=== PATIENT | male | born 1995 | race Caucasian/White ===

== ENCOUNTER 2018-06-23 19:00 | Emergency (ER) | payer OTHER ==
[~2018-06-23] VITALS: Ht 175.3 cm; Wt 78.5 kg
[2018-06-23 19:23] VITALS: BP 155/95
--- NOTE | 2018-06-23 19:23 | NUR ---
PT AMULATED W/ STEADY GATE BACK TO LOBBY, VSS, PT ACTING APPROPRIATLY.
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
--- NOTE | 2018-06-23 19:52 | NUR ---
PT AMBULATED TO CHAIR E, PHYSICIAN AWARE OF PT STATUS.
[2018-06-23 20:25] VITALS: BP 131/92
--- NOTE | 2018-06-23 20:25 | NUR ---
Patient discharged with v/s stable. Written and verbal after care instructions given and explained. Patient alert, oriented and verbalized understanding of instructions. Ambulatory with steady gait. All questions addressed prior to discharge. ID band removed. Patient advised to follow up with PMD. Rx of TYLENOL ES, BACITRACIN given. Patient educated on indication of medication including possible reaction and side effects. Opportunity to ask questions provided and answered.
== END 2018-06-23 20:25 | disposition home or self-care (01) ==
LOC: MED 19:00
DX: S50.852A Superficial foreign body of left forearm, initial encounter (principal); S50.12XA Contusion of left forearm, initial encounter; V89.2XXA Person injured in unspecified motor-vehicle accident, traffic, initial encounter; Y93.89 Activity, other specified; Y92.411 Interstate highway as the place of occurrence of the external cause; Y99.8 Other external cause status
CPT/HCPCS: 99283

== ENCOUNTER 2021-03-31 10:10 | Emergency (ER) | payer OTHER, MEDICAID ==
[~2021-03-31] VITALS: Ht 167.6 cm; Wt 89.6 kg
[2021-03-31 10:42] VITALS: BP 166/106
--- NOTE | 2021-03-31 12:13 | NUR ---
NO NURSING INTERVENTIONS NEEDED, NO COMPLETE ASSESSMENT DONE.
[2021-03-31 12:14] VITALS: BP 166/106
--- NOTE | 2021-03-31 12:14 | NUR ---
PATIENT ELOPED FROM FACILITY. DISCHARGE INSTRUCTIONS NOT GIVEN TO PATIENT. RJ OROZCO NOTIFIED.
== END 2021-03-31 12:14 | disposition home or self-care (01) ==
LOC: MED 10:10
DX: I10 Essential (primary) hypertension (principal); Z87.448 Personal history of other diseases of urinary system; Z49.02 Encounter for fitting and adjustment of peritoneal dialysis catheter
CPT/HCPCS: 99281